=== PATIENT | male | born 1940 | race Hispanic/Latino ===

== ENCOUNTER 2021-07-10 17:23 | Inpatient (IN) | payer OTHER ==
[~2021-07-10] VITALS: Ht 177.8 cm; Wt 78.5 kg
[2021-07-10] MEDS ORDERED: Vancomycin IV 1 GM in SODIUM CHLORIDE 0.9% 250ML 250 ML IV SCH (18:00)
[2021-07-10] MEDS ORDERED: SODIUM CHLORIDE FLUSH 10 ML SYR INJ PRN (18:00)
[2021-07-10] MEDS ORDERED: DEXTROSE 50% SYRINGE 50 ML IV PRN (18:00)
[2021-07-10] MEDS: CEFEPIME 1 GM in SODIUM CHLORIDE 0.9% 50ML 50 ML IV SCH (18:11)
[2021-07-10 18:29] LABS: BASOPHILS % 0.4 % (0.0-1.0); EOSINOPHILS # (AUTO) 0.2 (0.0-0.4); EOSINOPHILS % 2.1 % (0.0-6.0); HEMATOCRIT 37.4 % (38.2-49.6); HEMOGLOBIN 12.1 g/dL (14.0-18.0); LYMPHOCYTES # (AUTO) 0.9 (1.0-3.2); LYMPHOCYTES % 10.9 % (18.0-39.1); MEAN CORPUSCULAR HEMOGLOBIN 29.7 pg (28-32); MEAN CORPUSCULAR HGB CONC 32.4 g/dL (31-35); MEAN CORPUSCULAR VOLUME 91.9 fL (81-99); MONOCYTES # (AUTO) 0.6 (0.2-0.8); MONOCYTES % 7.6 % (4.4-11.3); NEUTROPHILS # (AUTO) 6.7 (2.1-6.9); NEUTROPHILS % 78.6 % (38.7-80.0); PLATELET COUNT 246 x10e3/uL (140-360); RED BLOOD COUNT 4.07 x10e6/uL (4.3-5.7); RED CELL DISTRIBUTION WIDTH 13.3 % (11.7-14.4)
[2021-07-10 18:40] LABS: ALBUMIN 2.9 g/dL (3.5-5.0); ALBUMIN/GLOBULIN RATIO 0.7 (0.8-2.0); ANION GAP 14.9 mmol/L (8-16); CALCIUM 8.3 mg/dL (8.4-10.2); CREATININE, SERUM 2.82 mg/dL (0.72-1.25); POTASSIUM 3.9 mmol/L (3.5-5.1)
[2021-07-10] MEDS ORDERED: HYDRALAZINE HCL 20 MG/ML VIAL IV PRN (18:45)
[2021-07-10] MEDS: Morphine 4mg Syringe 4 MG/ML INJ IV PRN (18:57)
[2021-07-10] MEDS: ONDANSETRON HCL INJ 2MG/ML 2ML 2 MG/ML VIAL IV PRN (18:57)
[2021-07-10] MEDS ORDERED: HYDRALAZINE HCL 20 MG/ML VIAL ONE (19:04)
[2021-07-10 21:00] VITALS: BP 166/78
[2021-07-10] MEDS: INSULIN REGULAR, HUMAN 100 UNIT/1 ML SQ SCH (21:00)
[2021-07-11] VITALS (9 sets, daily range): BP systolic 113–200; BP diastolic 72–129
[2021-07-11] MEDS ORDERED: SODIUM CHLORIDE 0.9% 250ML 250 ML ONE ×2 (00:44→05:36)
[2021-07-11] MEDS: CEFEPIME 1 GM in SODIUM CHLORIDE 0.9% 50ML 50 ML IV SCH ×3 (01:00→16:15)
[2021-07-11] MEDS: ONDANSETRON HCL INJ 2MG/ML 2ML 2 MG/ML VIAL IV PRN (02:04)
[2021-07-11] MEDS: Morphine 4mg Syringe 4 MG/ML INJ IV PRN ×2 (02:04→20:11)
[2021-07-11] MEDS ORDERED: Vancomycin IV 1 GM VIAL ONE (05:34)
[2021-07-11] MEDS ORDERED: SODIUM CHLORIDE 0.9% 100 ML ONE (05:35)
[2021-07-11] MEDS: Vancomycin IV 500 MG in SODIUM CHLORIDE 0.9% 100 ML IV SCH ×2 (05:36→17:40)
[2021-07-11 05:43] LABS: BASOPHILS # (AUTO) 0.1 (0.0-0.1); BASOPHILS % 0.7 % (0.0-1.0); EOSINOPHILS # (AUTO) 0.1 (0.0-0.4); HEMATOCRIT 32.4 % (38.2-49.6); HEMOGLOBIN 10.9 g/dL (14.0-18.0); LYMPHOCYTES # (AUTO) 1.1 (1.0-3.2); LYMPHOCYTES % 11.5 % (18.0-39.1); MEAN CORPUSCULAR HEMOGLOBIN 29.8 pg (28-32); MEAN CORPUSCULAR HGB CONC 33.6 g/dL (31-35); MEAN CORPUSCULAR VOLUME 88.5 fL (81-99); MONOCYTES # (AUTO) 0.6 (0.2-0.8); MONOCYTES % 6.6 % (4.4-11.3); NEUTROPHILS # (AUTO) 7.3 (2.1-6.9); NEUTROPHILS % 79.8 % (38.7-80.0); PLATELET COUNT 229 x10e3/uL (140-360); RED BLOOD COUNT 3.66 x10e6/uL (4.3-5.7); RED CELL DISTRIBUTION WIDTH 13.2 % (11.7-14.4)
[2021-07-11 06:03] LABS: ALBUMIN 2.6 g/dL (3.5-5.0); ANION GAP 12.8 mmol/L (8-16); CALCIUM 8.1 mg/dL (8.4-10.2); CREATININE, SERUM 2.46 mg/dL (0.72-1.25); POTASSIUM 3.8 mmol/L (3.5-5.1)
[2021-07-11 06:04] LABS: ALBUMIN/GLOBULIN RATIO 0.8 (0.8-2.0)
[2021-07-11] MEDS: INSULIN REGULAR, HUMAN 100 UNIT/1 ML SQ SCH ×4 (07:30→19:38)
[2021-07-11] MEDS ORDERED: NIFEDIPINE CR 30 MG TAB PO ONE (10:30)
[2021-07-11] MEDS: METOPROLOL TARTRATE 25 MG TAB PO SCH ×2 (10:52→16:15)
[2021-07-11] MEDS: ENOXAPARIN SOD INJ 40 MG/0.4 ML SYR SC SCH ×2 (10:52→20:11)
[2021-07-11] MEDS: NIFEDIPINE CR 30 MG TAB PO SCH (16:15)
[2021-07-11] MEDS ORDERED: NATEGLINIDE60 MG (19:47)
[2021-07-11] MEDS ORDERED: METOPROLOL SUCC50 MG PO (19:54)
[2021-07-11] MEDS ORDERED: BACLOFEN10 MG PO (19:54)
[2021-07-11] MEDS ORDERED: BENICAR20 MG PO (19:54)
[2021-07-11] MEDS ORDERED: ATORVASTATIN CA20 MG PO (19:54)
[2021-07-11] MEDS ORDERED: GLIMEPIRIDE2 MG PO (19:54)
[2021-07-11] MEDS ORDERED: NIFEDIPINE ER30 M1 PO (19:54)
[2021-07-12] VITALS (9 sets, daily range): BP systolic 120–165; BP diastolic 60–90
[2021-07-12] MEDS: CEFEPIME 1 GM in SODIUM CHLORIDE 0.9% 50ML 50 ML IV SCH ×3 (01:35→15:59)
[2021-07-12 05:17] LABS: CHOL/HDL RATIO 3.8 (3.9-4.7)
[2021-07-12 05:43] LABS: THYROID STIMULATING HORMONE 1.961 uIU/mL (0.350-4.940)
[2021-07-12] MEDS: Vancomycin IV 500 MG in SODIUM CHLORIDE 0.9% 100 ML IV SCH ×2 (06:35→18:22)
[2021-07-12] MEDS: INSULIN REGULAR, HUMAN 100 UNIT/1 ML SQ SCH ×4 (07:30→19:36)
[2021-07-12] MEDS ORDERED: ONDANSETRON HCL 4 MG ORAL DISINTEGRATING TAB PO PRN (08:45)
[2021-07-12] MEDS: METOPROLOL TARTRATE 25 MG TAB PO SCH ×2 (08:46→15:57)
[2021-07-12] MEDS: ASPIRIN 81 MG CHEW TAB PO SCH (08:46)
[2021-07-12] MEDS: ATORVASTATIN 40 MG TAB PO SCH (08:46)
[2021-07-12] MEDS: NIFEDIPINE CR 30 MG TAB PO SCH ×2 (08:46→15:58)
[2021-07-12] MEDS: ENOXAPARIN SOD INJ 40 MG/0.4 ML SYR SC SCH ×2 (08:47→20:20)
[2021-07-12 09:34] LABS: CALCIUM 8.3 mg/dL (8.4-10.2); CREATININE, SERUM 2.66 mg/dL (0.72-1.25)
[2021-07-12] MEDS ORDERED: LACTATED RINGER'S 1,000 ML INJ ONE (15:15)
[2021-07-12 16:48] LABS: CLARITY,URINE SL CLOUDY (CLEAR); COLOR,URINE YELLOW (YELLOW)
[2021-07-12 16:49] LABS: KETONES,URINE NEGATIVE (NEGATIVE); LEUKOCYTE ESTERASE ,URINE NEGATIVE (NEGATIVE); NITRITE,URINE NEGATIVE (NEGATIVE); PROTEIN,URINE DIPSTICK >=300 (NEGATIVE); URINE UROBILINOGEN 0.2 mg/dL (0.2 - 1)
[2021-07-12 16:54] LABS: BACTERIA,URINE MANY /HPF; EPITHELIAL CELLS,URINE FEW /LPF; HYALINE CASTS 0-1 (0-1); RBC,URINE 0-5 /HPF (0-5)
[2021-07-12] MEDS: ACETAMINOPHEN 325 MG TAB PO PRN (16:58)
[2021-07-13] VITALS (8 sets, daily range): BP systolic 129–185; BP diastolic 57–81
[2021-07-13] MEDS: CEFEPIME 1 GM in SODIUM CHLORIDE 0.9% 50ML 50 ML IV SCH ×3 (01:17→17:46)
[2021-07-13] MEDS: Vancomycin IV 500 MG in SODIUM CHLORIDE 0.9% 100 ML IV SCH ×2 (05:15→20:00)
[2021-07-13 05:20] LABS: ANION GAP 14.3 mmol/L (8-16); CALCIUM 8.1 mg/dL (8.4-10.2); CREATININE, SERUM 2.58 mg/dL (0.72-1.25); POTASSIUM 4.3 mmol/L (3.5-5.1)
[2021-07-13] MEDS: INSULIN REGULAR, HUMAN 100 UNIT/1 ML SQ SCH ×4 (07:30→21:00)
[2021-07-13] MEDS: NIFEDIPINE CR 30 MG TAB PO SCH ×2 (09:00→17:47)
[2021-07-13] MEDS: ENOXAPARIN SOD INJ 40 MG/0.4 ML SYR SC SCH (09:00)
[2021-07-13] MEDS: ATORVASTATIN 40 MG TAB PO SCH (09:00)
[2021-07-13] MEDS: ASPIRIN 81 MG CHEW TAB PO SCH (09:00)
[2021-07-13] MEDS: METOPROLOL TARTRATE 25 MG TAB PO SCH ×2 (09:00→17:46)
[2021-07-13] MEDS: ACETAMINOPHEN 325 MG TAB PO PRN (09:45)
[2021-07-13] MEDS: HYDROXYZINE HCL 25 MG TAB PO PRN ×2 (11:35→23:20)
[2021-07-13] MEDS: Morphine 4mg Syringe 4 MG/ML INJ IV PRN (13:50)
[2021-07-13] MEDS: HEPARIN SOD (PORCINE) 5,000 UNIT/ML VIAL SC SCH (21:16)
[2021-07-14] VITALS (7 sets, daily range): BP systolic 142–164; BP diastolic 72–90
[2021-07-14] MEDS: CEFEPIME 1 GM in SODIUM CHLORIDE 0.9% 50ML 50 ML IV SCH (01:00)
[2021-07-14] MEDS: Vancomycin IV 500 MG in SODIUM CHLORIDE 0.9% 100 ML IV SCH (06:30)
[2021-07-14] MEDS: INSULIN REGULAR, HUMAN 100 UNIT/1 ML SQ SCH ×4 (07:30→20:50)
[2021-07-14] MEDS: HEPARIN SOD (PORCINE) 5,000 UNIT/ML VIAL SC SCH ×2 (10:00→20:55)
[2021-07-14] MEDS: NIFEDIPINE CR 30 MG TAB PO SCH ×2 (10:00→18:41)
[2021-07-14] MEDS: ATORVASTATIN 40 MG TAB PO SCH (10:00)
[2021-07-14] MEDS: METOPROLOL TARTRATE 25 MG TAB PO SCH ×2 (10:00→18:41)
[2021-07-14] MEDS: ASPIRIN 81 MG CHEW TAB PO SCH (10:00)
[2021-07-14] MEDS: ACETAMINOPHEN 325 MG TAB PO PRN (18:40)
[2021-07-15] VITALS (8 sets, daily range): BP systolic 110–151; BP diastolic 67–84
[2021-07-15] MEDS: CEFEPIME 1 GM in SODIUM CHLORIDE 0.9% 50ML 50 ML IV SCH ×2 (06:00→17:17)
[2021-07-15 06:54] LABS: ANION GAP 14.9 mmol/L (8-16); CALCIUM 9.2 mg/dL (8.4-10.2); CREATININE, SERUM 2.41 mg/dL (0.72-1.25); POTASSIUM 3.9 mmol/L (3.5-5.1)
[2021-07-15] MEDS: INSULIN REGULAR, HUMAN 100 UNIT/1 ML SQ SCH ×4 (07:30→20:51)
[2021-07-15] MEDS: HEPARIN SOD (PORCINE) 5,000 UNIT/ML VIAL SC SCH ×2 (09:15→21:00)
[2021-07-15] MEDS: ATORVASTATIN 40 MG TAB PO SCH (09:18)
[2021-07-15] MEDS: METOPROLOL TARTRATE 25 MG TAB PO SCH (09:18)
[2021-07-15] MEDS: ASPIRIN 81 MG CHEW TAB PO SCH (09:18)
[2021-07-15] MEDS: NIFEDIPINE CR 30 MG TAB PO SCH ×2 (09:19→16:07)
[2021-07-15] MEDS: Morphine 4mg Syringe 4 MG/ML INJ IV PRN (16:09)
[2021-07-15] MEDS: METOPROLOL SUCCINATE 50 MG TAB XL PO SCH (21:00)
[2021-07-16] VITALS (8 sets, daily range): BP systolic 147–183; BP diastolic 80–92
[2021-07-16] MEDS: CEFEPIME 1 GM in SODIUM CHLORIDE 0.9% 50ML 50 ML IV SCH ×2 (06:00→17:20)
[2021-07-16] MEDS ORDERED: DEXAMETHASONE SOD PHOS INJ 4 MG/ML SDV ONE (06:35)
[2021-07-16] MEDS ORDERED: BUPIVACAINE HCL 0.5% INJ 30 ML VIAL INJ ONE (06:35)
[2021-07-16] MEDS: INSULIN REGULAR, HUMAN 100 UNIT/1 ML SQ SCH ×4 (07:30→21:00)
[2021-07-16] MEDS: ATORVASTATIN 40 MG TAB PO SCH (09:24)
[2021-07-16] MEDS: ASPIRIN 81 MG CHEW TAB PO SCH (09:24)
[2021-07-16] MEDS: NIFEDIPINE CR 30 MG TAB PO SCH ×2 (09:25→17:20)
[2021-07-16] MEDS: HEPARIN SOD (PORCINE) 5,000 UNIT/ML VIAL SC SCH ×2 (09:42→21:00)
[2021-07-16] MEDS ORDERED: ONDANSETRON HCL INJ 2MG/ML 2ML 2 MG/ML VIAL ONE (12:22)
[2021-07-16] MEDS ORDERED: PROPOFOL IV EMULSION 10 MG/ML 20 ML VIAL ONE (12:22)
[2021-07-16] MEDS ORDERED: SEVOFLURANE INHAL SOLN 250 ML PEN BTL ONE (12:22)
[2021-07-16] MEDS ORDERED: LIDOCAINE HCL 2% LOCAL INJ 5 ML SDV VIAL INJ ONE (12:22)
[2021-07-16] MEDS ORDERED: POVIDONE IODINE 0.05% 0.05 % ML PO ONE (12:22)
[2021-07-16] MEDS ORDERED: FENTANYL CITRATE/PF 100MCG/2 ML INJ ONE (12:52)
[2021-07-16] MEDS: Morphine 4mg Syringe 4 MG/ML INJ IV PRN (16:21)
[2021-07-16] MEDS: METOPROLOL SUCCINATE 50 MG TAB XL PO SCH (21:00)
[2021-07-17] VITALS (7 sets, daily range): BP systolic 149–169; BP diastolic 67–98
[2021-07-17] MEDS: CEFEPIME 1 GM in SODIUM CHLORIDE 0.9% 50ML 50 ML IV SCH ×2 (05:15→18:20)
[2021-07-17 06:24] LABS: BASOPHILS # (AUTO) 0.1 (0.0-0.1); BASOPHILS % 0.6 % (0.0-1.0); EOSINOPHILS # (AUTO) 0.3 (0.0-0.4); EOSINOPHILS % 3.8 % (0.0-6.0); HEMATOCRIT 33.8 % (38.2-49.6); HEMOGLOBIN 10.9 g/dL (14.0-18.0); LYMPHOCYTES # (AUTO) 1.1 (1.0-3.2); LYMPHOCYTES % 12.7 % (18.0-39.1); MEAN CORPUSCULAR HEMOGLOBIN 29.9 pg (28-32); MEAN CORPUSCULAR HGB CONC 32.2 g/dL (31-35); MEAN CORPUSCULAR VOLUME 92.9 fL (81-99); MONOCYTES # (AUTO) 0.6 (0.2-0.8); MONOCYTES % 7.2 % (4.4-11.3); NEUTROPHILS # (AUTO) 6.3 (2.1-6.9); PLATELET COUNT 267 x10e3/uL (140-360); RED BLOOD COUNT 3.64 x10e6/uL (4.3-5.7); RED CELL DISTRIBUTION WIDTH 13.1 % (11.7-14.4)
[2021-07-17 06:59] LABS: ANION GAP 12.3 mmol/L (8-16); CALCIUM 8.2 mg/dL (8.4-10.2); CREATININE, SERUM 2.77 mg/dL (0.72-1.25); POTASSIUM 4.3 mmol/L (3.5-5.1)
[2021-07-17] MEDS: INSULIN REGULAR, HUMAN 100 UNIT/1 ML SQ SCH ×4 (08:00→21:21)
[2021-07-17] MEDS: HEPARIN SOD (PORCINE) 5,000 UNIT/ML VIAL SC SCH ×2 (09:45→21:20)
[2021-07-17] MEDS: ASPIRIN 81 MG CHEW TAB PO SCH (09:45)
[2021-07-17] MEDS: ATORVASTATIN 40 MG TAB PO SCH (09:45)
[2021-07-17] MEDS: NIFEDIPINE CR 30 MG TAB PO SCH ×2 (09:45→16:35)
[2021-07-17] MEDS: CLOPIDOGREL BISULFATE 75 MG TAB PO SCH (09:45)
[2021-07-17] MEDS: METOPROLOL SUCCINATE 50 MG TAB XL PO SCH ×2 (11:50→21:11)
[2021-07-17] MEDS: ACETAMINOPHEN 325 MG TAB PO PRN (12:30)
[2021-07-17] MEDS ORDERED: LACTATED RINGER'S 1,000 ML INJ SCH (16:15)
[2021-07-18] VITALS: BP 143/72
[2021-07-18] MEDS: ACETAMINOPHEN 325 MG TAB PO PRN (00:53)
[2021-07-18 04:00] VITALS: BP 162/76
[2021-07-18] MEDS: CEFEPIME 1 GM in SODIUM CHLORIDE 0.9% 50ML 50 ML IV SCH (05:50)
[2021-07-18 06:56] LABS: ANION GAP 13.7 mmol/L (8-16); CALCIUM 8.8 mg/dL (8.4-10.2); CREATININE, SERUM 2.48 mg/dL (0.72-1.25); POTASSIUM 4.7 mmol/L (3.5-5.1)
[2021-07-18 08:03] VITALS: BP 162/82
[2021-07-18] MEDS: ASPIRIN 81 MG CHEW TAB PO SCH (09:00)
[2021-07-18] MEDS: CLOPIDOGREL BISULFATE 75 MG TAB PO SCH (09:00)
[2021-07-18] MEDS: METOPROLOL SUCCINATE 50 MG TAB XL PO SCH (09:00)
[2021-07-18] MEDS: ATORVASTATIN 40 MG TAB PO SCH (09:00)
[2021-07-18] MEDS: NIFEDIPINE CR 30 MG TAB PO SCH (09:00)
[2021-07-18] MEDS: INSULIN REGULAR, HUMAN 100 UNIT/1 ML SQ SCH ×3 (09:01→15:47)
[2021-07-18] MEDS ORDERED: AMLODIPINE BESYLATE 5 MG TAB PO SCH (09:30)
[2021-07-18 10:00] VITALS: BP 162/82
[2021-07-18] MEDS ORDERED: FUROSEMIDE 20 MG TAB PO SCH (10:00)
[2021-07-18] MEDS ORDERED: CLOPIDOGREL75 MG PO (10:25)
[2021-07-18] MEDS ORDERED: NIFEDIPINE ER30 M1 PO ×2 (10:25→10:36)
[2021-07-18] MEDS ORDERED: METOPROLOL SUCC50 MG PO (10:26)
[2021-07-18] MEDS ORDERED: GLUCOTROL XL10 MG PO (10:26)
[2021-07-18] MEDS ORDERED: ONDANSETRON ODT4 MG PO (10:27)
[2021-07-18] MEDS ORDERED: TYLENOL #3 PO (10:27)
[2021-07-18] MEDS ORDERED: ECOTRIN81 MG PO (10:28)
[2021-07-18 11:58] VITALS: BP 160/71
[2021-07-18] MEDS: HEPARIN SOD (PORCINE) 5,000 UNIT/ML VIAL SC SCH (12:00)
[2021-07-18 15:59] VITALS: BP 170/88
[2021-07-18] MEDS ORDERED: NIFEDIPINE CR 30 MG TAB PO SCH (21:00)
== END 2021-07-18 16:30 | disposition home or self-care (01) | DRG 616 ==
LOC: ER 18:00 → ERHOLD 18:44 → MED/SURG2 19:26
PROVIDERS: ADMIT Internal Medicine; ATTEND Internal Medicine
PROC: 0Y6R0Z0 Detachment at Right 2nd Toe, Complete, Open Approach (ICD-10-PCS; principal; 2021-07-16 06:30)
DX: E11.69 Type 2 diabetes mellitus with other specified complication (principal); I50.33 Acute on chronic diastolic (congestive) heart failure; E11.52 Type 2 diabetes mellitus with diabetic peripheral angiopathy with gangrene; L98.498 Non-pressure chronic ulcer of skin of other sites with other specified severity; M86.8X7 Other osteomyelitis, ankle and foot; I13.0 Hypertensive heart and chronic kidney disease with heart failure and stage 1 through stage 4 chronic kidney disease, or unspecified chronic kidney disease; I96 Gangrene, not elsewhere classified; N17.9 Acute kidney failure, unspecified; E11.621 Type 2 diabetes mellitus with foot ulcer; I70.25 Atherosclerosis of native arteries of other extremities with ulceration; Z79.899 Other long term (current) drug therapy; N40.1 Benign prostatic hyperplasia with lower urinary tract symptoms; R33.8 Other retention of urine; E11.22 Type 2 diabetes mellitus with diabetic chronic kidney disease; E78.5 Hyperlipidemia, unspecified; E11.628 Type 2 diabetes mellitus with other skin complications; L03.031 Cellulitis of right toe; Z79.84 Long term (current) use of oral hypoglycemic drugs; N18.30 Chronic kidney disease, stage 3 unspecified; E86.0 Dehydration; Z20.822 Contact with and (suspected) exposure to COVID-19
CPT/HCPCS: 36415; 76770; 80048; 80053; 80061; 80202; 81001; 82607; 82746; 82948; 83036; 83540; 84443; 84466; 85025; 85651; 87040; 87071; 87186; 87205; 88304; 88305; 88311; 93306; 93925; 94799; 96372; 99251; 99284; J0360; J0692; J1100; J1644; J1650; J1817; J2001; J2270; J2405; J3010; J3370; J3410; J7050; J7121; U0002